=== PATIENT | female | born 1945 | race Caucasian/White ===

== ENCOUNTER 2018-04-06 14:53 | Outpatient (CLI) | payer MEDICARE, MEDICAID | END 2018-04-06 14:54 | disposition home or self-care (01) | LOC: RAD 14:53 ==

== ENCOUNTER 2018-07-08 10:30 | Outpatient (CLI) | payer MEDICARE, MEDICAID | END 2018-07-08 10:31 | disposition home or self-care (01) | LOC: RAD 10:30 | DX: N95.1 Menopausal and female climacteric states (principal) ==